=== PATIENT | male | born 1955 | race Caucasian/White ===

== ENCOUNTER → 2018-11-02 | Outpatient (CLI) | payer OTHER ==
[~2018-11-02] MED LIST: ACET325 PO; ALBIPROI INH; ALBU90OI INH; ASPI81CH; Adderall 20 MG20 MG; CYCL10; ERYT500 PO; GEMF600; HYDACE5 PO; IBUP800 PO; LEVFLO500 PO; OXYACE5T PO; PROZAC20 MG; RXSULTRIDS PO; SULTRIDS PO
[2018-11-02 20:00] LABS: U Amphetamine Screen DETECTED; U Barbituate Screen Not Detected; U Benzodiazapine Screen DETECTED; U Buprenorphine Screen Not Detected; U Cannabinoids Screen Not Detected; U Cocaine Screen Not Detected; U Methadone Screen Not Detected; U Methamphetamine Screen Not Detected; U Opiates Screen Not Detected; U Oxycodone Screen Not Detected; U Phencyclidine Screen Not Detected; U Propoxyphene Screen Not Detected
== END ==
LOC: LAB SHORT 18:00 → LAB 18:00
PROVIDERS: Student in an Organized Health Care Education/Training Program
DX: F90.2 Attention-deficit hyperactivity disorder, combined type (principal)

== ENCOUNTER → 2024-07-19 | Outpatient (CLI) | payer MEDICARE, OTHER ==
[2024-07-19 17:35] LABS: U Amphetamine Screen DETECTED; U Barbituate Screen Not Detected; U Benzodiazapine Screen Not Detected; U Cannabinoids Screen DETECTED; U Cocaine Screen Not Detected; U Methadone Screen Not Detected; U Opiates Screen DETECTED; U Phencyclidine Screen Not Detected
[2024-07-19 17:36] LABS: U Buprenorphine Screen Not Detected; U Methamphetamine Screen Not Detected; U Oxycodone Screen DETECTED
== END | disposition home or self-care (01) ==
LOC: LAB SHORT 15:34 → LAB 15:34
PROVIDERS: Internal Medicine Hematology & Oncology
DX: G89.21 Chronic pain due to trauma (principal); Z79.899 Other long term (current) drug therapy